=== PATIENT | male | born 1960 | race American Indian/Alaskan Native ===

== ENCOUNTER 2020-05-24 10:29 | Outpatient (CLI) | payer BC ==
--- NOTE | 2020-05-24 11:37 | Cat Scan Report ---
CT ABDOMEN AND PELVIS WITHOUT CONTRAST INDICATION / CLINICAL INFORMATION: R31.0 HEMATURIA. TECHNIQUE: Axial CT images were obtained through the abdomen and pelvis without IV contrast. All CT scans at [facility] location are performed using CT dose reduction for ALARA by means of automated exposure control. COMPARISON: None available. FINDINGS: LOWER CHEST: No significant abnormality. LIVER: No significant abnormality. GALLBLADDER: No significant abnormality. BILE DUCTS: No significant abnormality. PANCREAS: No significant abnormality. SPLEEN: No significant abnormality. ADRENALS: No significant abnormality. RIGHT KIDNEY / URETER: No significant abnormality. No evidence of nephroureterolithiasis or obstructi ve uropathy. LEFT KIDNEY / URETER: No significant abnormality. No evidence of nephroureterolithiasis or obstructiv e uropathy. STOMACH / SMALL BOWEL: No significant abnormality. COLON: No significant abnormality. Scattered colonic diverticulosis without evidence of inflammation. APPENDIX: No significant abnormality. PERITONEUM: No free fluid. No free air. No fluid collection. LYMPH NODES: Prominent inguinal lymph nodes bilaterally. AORTA / ARTERIES: Moderate calcific atherosclerotic disease throughout the abdominal aorta. Bilateral iliac artery stent grafts are seen. IVC / VEINS: No significant abnormality. URINARY BLADDER: Mild circumferential urinary bladder wall thickening with minimal inflammation. REPRODUCTIVE ORGANS: No significant abnormality. ADDITIONAL FINDINGS: None. SKELETAL SYSTEM: No significant abnormality. IMPRESSION: 1. Mild circumferential urinary bladder wall thickening could represent cystitis in the right clinica l setting. Correlation with urinalysis is recommended. There is no evidence of nephroureterolithiasis or obstructive uropathy. 2. Prominent bilateral inguinal lymph nodes. 3. Uncomplicated colonic diverticulosis. Signer Name: Allan Davis MD Signed: 05/24/2020 11:33 AM Workstation Name: [id number]
== END 2020-05-24 10:30 | disposition home or self-care (01) ==
LOC: CT 10:29
PROVIDERS: ATTEND Urology
DX: K57.30 Diverticulosis of large intestine without perforation or abscess without bleeding (principal); R31.0 Gross hematuria; N30.80 Other cystitis without hematuria
CPT/HCPCS: 74176